=== PATIENT | male | born 1980 | race American Indian/Alaskan Native ===

== ENCOUNTER 2020-03-29 22:15 | Emergency (ER) | payer SELFPAY ==
[2020-03-29] MEDS ORDERED: HYDROcodone/ACETAMINOPHEN 10-325MG TAB PO ONE (22:23)
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
[2020-03-29] MEDS ORDERED: cephALEXin 500 MG CAP PO ONE (22:32)
[2020-03-29] MEDS ORDERED: SODIUM CHLORIDE 0.9% 1000 ML 1,000 ML IV ONE (22:32)
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
[2020-03-29 23:48] VITALS: BP 109/58
== END 2020-03-30 00:45 | disposition home or self-care (01) ==
LOC: ED 22:15
DX: T22.20XA Burn of second degree of shoulder and upper limb, except wrist and hand, unspecified site, initial encounter (principal); T31.0 Burns involving less than 10% of body surface; X58.XXXA Exposure to other specified factors, initial encounter; Y93.89 Activity, other specified; Y92.89 Other specified places as the place of occurrence of the external cause; Y99.8 Other external cause status
CPT/HCPCS: 16020; 99282; J7030